=== PATIENT | female | born 1960 | race Caucasian/White ===

== ENCOUNTER 2018-03-06 06:42 | Emergency (ER) | payer OTHER ==
[~2018-03-06] VITALS: Ht 152.4 cm; Wt 54.5 kg
[2018-03-06 06:58] VITALS: BP 165/98
[2018-03-06] MEDS ORDERED: BUPR75 PO (06:59)
[2018-03-06] MEDS ORDERED: BUPR150SR PO (07:01)
== END 2018-03-06 09:08 | disposition home or self-care (01) ==
LOC: EMS 06:43
DX: F41.9 Anxiety disorder, unspecified (principal); F32.9 Major depressive disorder, single episode, unspecified; F12.90 Cannabis use, unspecified, uncomplicated
CPT/HCPCS: 99284